=== PATIENT | female | born 1985 | race Hispanic/Latino ===

== ENCOUNTER 2019-02-06 19:34 | Emergency (ER) | payer MEDICAID, OTHER ==
[~2019-02-06 19:34] MED LIST: PNV91TAB3 PO
[2019-02-06] MEDS ORDERED: SODIUM CHLORIDE 0.9% 1000ML 1,000 ML IV ONE (19:55)
[2019-02-06 20:12] LABS: APPEARANCE,URINE Turbid (CLEAR); BILIRUBIN,URINE Small (NEGATIVE); COLOR,URINE Dark Yellow (YELLOW); GLUCOSE, URINE (UA) Negative (NEGATIVE); KETONES,URINE Trace mg/dL (NEGATIVE); LEUKOCYTE ESTERASE ,URINE Moderate (NEGATIVE); NITRATE,URINE Negative (NEGATIVE); OCCULT BLOOD,URINE Large (NEGATIVE); PH,URINE 5.5 (5.0-8.0); PROTEIN,URINE 300 mg/dL (NEGATIVE)
[2019-02-06 20:22] LABS: BASOPHILS % (AUTO) 0.4 % (0.0-5.0); HEMATOCRIT 40.1 % (36-48); LYMPHOCYTES % (AUTO) 14.4 % (21.0-51.0); MEAN CORPUSCULAR HEMOGLOBIN 30.3 pg (27.0-33.0); MEAN CORPUSCULAR HGB CONC 34.6 g/dL (32.0-36.0); MEAN CORPUSCULAR VOLUME 87.4 fL (79-99); MONOCYTES % (AUTO) 8.4 % (3.0-13.0); NEUTROPHILS % (AUTO) 76.8 % (40.0-77.0); NUCLEATED RED BLOOD CELLS 0.1 % (0.0-0.19); PLATELET COUNT (AUTO) 213 K/uL (130-400); RED BLOOD CELL COUNT(AUTO) 4.59 MIL/uL (4.00-5.50); RED CELL DISTRIBUTION WIDTH 13.6 % (11.0-15.5); WHITE BLOOD COUNT (AUTO) 7.8 K/uL (4.8-10.8)
[2019-02-06 20:35] LABS: RBC,URINE 51-100 /HPF (0-1); WBC,URINE 0-1 /HPF (0-1)
[2019-02-06 20:36] LABS: BACTERIA,URINE Few /HPF (None Seen); SQUAMOUS EPITHELIAL CELL,UR 0-2 /HPF (0-2)
[2019-02-06 20:39] LABS: CREATININE 0.6 mg/dL (0.5-1.5); POTASSIUM 3.4 mmol/L (3.5-5.1)
[2019-02-06 20:43] LABS: RAPID GROUP A STREP NEGATIVE (NEGATIVE)
[2019-02-06] MEDS ORDERED: OSELTAMIVIR PHOSPHATE 75 MG CAP ONE (21:07)
[2019-02-06] MEDS ORDERED: DiphenhydrAMINE HCL 50 MG/ML VIAL ONE (21:07)
[2019-02-06] MEDS ORDERED: KETOROLAC TROMETHAMINE 15MG/ML ONE (21:08)
== END 2019-02-06 21:51 | disposition home or self-care (01) ==
LOC: EDH 19:34
DX: J10.1 Influenza due to other identified influenza virus with other respiratory manifestations (principal); R30.0 Dysuria; N89.8 Other specified noninflammatory disorders of vagina
CPT/HCPCS: 36415; 80048; 81001; 84702; 85025; 87804 ×2; 87880; 96374; 96375; 99284; J1200; J1885; J7030

== ENCOUNTER 2022-08-07 16:48 | Emergency (ER) | payer BC, OTHER ==
[~2022-08-07] VITALS: Ht 144.8 cm; Wt 93.0 kg
[2022-08-07 17:21] VITALS: BP 161/93
[2022-08-07] MEDS ORDERED: DIPH-1242 PO (19:49)
[2022-08-07] MEDS ORDERED: FAMO-136 PO (19:49)
[2022-08-07] MEDS ORDERED: PRED20TA3 PO (19:49)
[2022-08-07] MEDS ORDERED: FAMOTIDINE 20MG TAB PO ONE (20:00)
[2022-08-07] MEDS ORDERED: PREDNISONE 20 MG TABLET PO ONE (20:00)
== END 2022-08-07 19:57 | disposition home or self-care (01) ==
LOC: EDH 16:48
DX: T78.40XA Allergy, unspecified, initial encounter (principal); X58.XXXA Exposure to other specified factors, initial encounter